=== PATIENT | male | born 1990 | race Caucasian/White ===

== ENCOUNTER 2017-12-24 08:07 | Emergency (ER) | payer BC ==
[~2017-12-24] VITALS: Ht 182.9 cm; Wt 122.7 kg
[2017-12-24 08:08] VITALS: TEMP 98.4
[2017-12-24] MEDS ORDERED: CYMBALTA 60MG60 MG PO (08:13)
[2017-12-24] MEDS ORDERED: DEPAKOTE ER 50500 MG PO (08:13)
[2017-12-24] MEDS ORDERED: NUVIGIL250 MG (08:14)
[2017-12-24 08:43] LABS: BASO % 0.5 % (0.0-2.0); EOS # 0.1 (0.0-0.7); EOS % 1.1 % (0-4.0); GRAN % 64.8 % (42.2-75.2); HEMATOCRIT 43.1 % (42.0-52.0); HEMOGLOBIN 15.3 g/dl (13.5-18.0); LYMPH # 1.5 (1.2-3.4); LYMPH % 23.4 % (20.0-51.0); MEAN CELL VOLUME 87 fl (80.0-100.0); MEAN CORPUSCULAR HEMOGLOBIN 31 pg (27.0-31.0); MEAN CORPUSCULAR HGB CONC 36 g/dl (33.0-37.0); MEAN PLATELET VOLUME 9.4 fl (7.4-10.4); MONO # 0.6 (0.1-0.6); MONO % 9.9 % (1.7-9.3); PLATELET COUNT 296 K/mm3 (130-400); RED BLOOD COUNT 4.96 M/mm3 (4.20-5.60); REDCELL DISTRIBUTION WIDTH-CV 12.6 % (11.5-14.5)
[2017-12-24 08:53] LABS: ALBUMIN 4.1 gm/dL (3.5-5.0); BILIRUBIN,TOTAL 0.8 mg/dL (0.0-1.0); CALCIUM 9.5 mg/dL (8.4-10.2); CREATININE, serum 0.77 mg/dL (0.66-1.25); POTASSIUM 4.4 mmol/L (3.4-5.0); TOTAL PROTEIN 7.2 gm/dL (6.4-8.2)
[2017-12-24 09:33] LABS: COLLECTION METHOD CLEAN CATCH
[2017-12-24 09:40] LABS: MUCOUS Present /lpf; PH 6 (5-8); SQUAMOUS EPITHELIAL None Seen /hpf; URINE APPEARANCE Clear; URINE BACTERIA None Seen /hpf; URINE BILIRUBIN Negative (NEGATIVE); URINE BLOOD Negative (NEGATIVE); URINE COLOR Yellow; URINE GLUCOSE Negative (NEGATIVE); URINE KETONE Negative (NEGATIVE); URINE LEUKOCYTE ESTERASE Negative (NEGATIVE); URINE NITRATE Negative (NEGATIVE); URINE PROTEIN(semi-quant) Negative (NEGATIVE); URINE RBC 0-2 /hpf; URINE UROBILINOGEN Negative (NEGATIVE)
[2017-12-24] MEDS ORDERED: FLEXERIL 1010 MG/TAB PO (11:08)
[2017-12-24] MEDS ORDERED: NORCO 325 MG-51 TAB PO (11:08)
[2017-12-24 11:31] VITALS: BP 139/91; PULSE 94
== END 2017-12-24 12:13 | disposition home or self-care (01) ==
LOC: COL.ER 08:07
PROVIDERS: Emergency Medicine
DX: S50.02XA Contusion of left elbow, initial encounter (principal); S60.222A Contusion of left hand, initial encounter; S70.02XA Contusion of left hip, initial encounter; S00.81XA Abrasion of other part of head, initial encounter; F31.9 Bipolar disorder, unspecified; V43.52XA Car driver injured in collision with other type car in traffic accident, initial encounter
CPT/HCPCS: J3010; J7030